=== PATIENT | male | born 1945 | race Caucasian/White ===

== ENCOUNTER 2017-12-18 17:11 | Inpatient (IN) | payer OTHER ==
[~2017-12-18] VITALS: Ht 182.9 cm; Wt 113.5 kg
--- NOTE | ~2017-12-18 | HC ---
[facility] [place] [address] CONSULTATION Name: RIMMA WHITEHEAD Room #: 501-A [facility] IN ..#: [id number] Admission: 12/18/17 Attend Phys: Rimma Guaman MD Discharge: Date of : 43 Report #: [id number] THIS REPORT FOR: //name// CC: Rimma Love DATE OF SERVICE: 12/22/2017 ATTENDING PHYSICIAN: Rimma Guaman MD. MILKING MACHINE TECHNICIAN: Ronny Morris, PhD. 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 He initially showed symptoms of aphasia with right upper extremity weakness and apraxia. The patient has a prior history of hypertension, hyperlipidemia and diabetes mellitus. He reported having 2 prior CVAs without significant residual symptoms prior to this recent and a history of chronic kidney disease and prostate cancer. A complete description of his medical condition and history can be found in his medical record. Neuropsychological consultation was requested to provide assistance in the assessment of cognitive and emotional status and to provide recommendations and services. Prior to this most recent admission, he was living with his son in their home. The patient had moved into the son's home about 3 weeks prior to his stroke. He has 2 children. The patient is a high school graduate. 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 The patient is a of the [place] [employer]. TECHNIQUES UTILIZED: Clinical interview, review of medical records, staff consultation and behavioral observation, mini mental status exam 2 standard version and clock drawing. EXAMINATION FINDINGS: The patient was alert and cooperative with the assessment. He accurately described the reason for his admission. He does not present with a receptive aphasia. However, he does present with a Broca's aphasia noted by halting and effortfull verbal expression and intermittent word substitution. With increased effort and reduced speed of fluency, he is able to effectively communicate wants and needs. The patient is also able to write although intermittent difficulty with dyslexia is noted in written expression. He describes his symptoms to include difficulty with memory and sleep disturbance. Appetite is reported as normal. He does not report subjective [address] [address] CONSULTATION Name: RIMMA WHITEHEAD J Room #: 501-A [facility] IN [facility].#: [id number] Admission: 12/18/17 Attend Phys: Rimma Guaman MD Discharge: Date of : 43 Report #: [id number] depression or feelings of anxiety. He indicated that his [id number] from suicide several years ago and he assisted in the care of his grandchildren at that time. His performance on the MMSE 2 brief version was in the mild range of impairment with a raw score of 13-16, T score 36th percentile rank of 8. He was 3/3 for initial registration, 5/5 for orientation to time, 4/[address] and 1/3 for immediate recall of 3 items after a brief time delay and distraction. His performance on the MMSE 2 standard version was in the low average range with a raw score 25, T score of 42 and percentile rank of 21. He was 5/5 for serial sevens, 2/2 for naming, 1/1 for repetition, 3/3 for auditory comprehension. He could read and follow single command. He had difficulty with writing a sentence and copying a simple geometric design. Clock drawing was within normal limits for a number and hand placement. The patient is presenting with an expressive dysphasia with well-maintained auditory comprehension. Deficits in immediate recall are noted. His mood appears good with a mild degree of anxiety which is intermittent. DIAGNOSTIC IMPRESSION: Mild neurocognitive disorder, due to vascular disease, without behavior disorder. Unspecified anxiety disorder - mild. RECOMMENDATIONS: The patient will benefit from continued utilization of compensatory strategies for areas of decreased cognition. Increased patience during verbal expression will be necessary to improve his self confidence with speech. His family will need to assist in the management of medication upon his initial return home. Additionally, issues concerning driving are noted. Verbal fluency deficits as they interfere with verbal may have an impact on his ability to successfully return to driving. For example, the patient was involved in an accident. He will have trouble describing the event that occurred. Driving with the passengers in the car will be of benefit to help him maintain driving skills. [facility] [address] [place] [address] CONSULTATION Name: RIMMA WHITEHEAD Room #: 501-A [facility] IN ..#: [id number] Admission: 12/18/17 Attend Phys: Rimma Guaman MD Discharge: Date of : 43 Report #: [id number] Thank you very much for allowing me to provide the consultation on this patient. <ELECTRONICALLY SIGNED> By: Ronny Morris, PhD 12/23/17 1459 [id number] 1806 Ronny Morris, PhD /nt
--- NOTE | ~2017-12-18 | PLAN ---
[facility] [place] [address] REHAB UNIT PLAN OF CARE Name: CHARLEYWALT Room #: 501-A [facility] IN ..#: [id number] Admission: 12/18/17 Attend Phys: Rimma Guaman MD Discharge: Date of : 43 Report #: [id number] THIS REPORT FOR: //name// CC: Rimma Montel[facility] DATE OF SERVICE: 12/21/2017 The patient is seen back today in followup. He is in no distress. His last recorded temperature is 98.5, pulse 73, respirations 18, blood pressure 133/63. He continues with the significant expressive greater than receptive aphasia. He has moderate to severe expressive deficits, but only mild comprehension deficits. In physical therapy, he is now modified independent in the room without gait aids. We are working on higher level balance, training, and fall prevention. Dressing upper body is modified independent. Working on strengthening exercises of the right lower extremity and upper extremity. ASSESSMENT: 1. Left middle cerebral artery CVA with multiple acute scattered infarcts. 2. Right upper extremity apraxia with some right lower extremity coordination deficits. 3. Aphasia, expressive greater than receptive. 4. Some dysarthria. 5. Right upper extremity weakness. 6. Hypertension. 7. Hyperlipidemia. 8. Diabetes mellitus. 9. History of depression. 10. Chronic kidney disease. 11. Past history of prostate cancer. 12. Prior stroke without significant residual. PLAN: The overall plan of care is based on the preadmission screen, post-admission physician evaluation and information garnered from therapy assessments. 1. Estimated length of stay is probably 7-14 days pending progress. 2. Medical prognosis is reasonably good. 3. Anticipated interventions includes the interdisciplinary acute inpatient rehabilitation program. 4. Anticipated functional outcomes would be for the patient to be fully independent with gait, transfers mobility, ADLs, and to further improve as far as communication and cognition. 5. Discharge destination would be back to the home setting, where he lives with his son. 6. Expected therapy by discipline includes PT, OT and speech 1 hour per day [address] [address] REHAB UNIT PLAN OF CARE Name: RIMMA WHITEHEAD Room #: 501-A [facility] IN ..#: [id number] Admission: 12/18/17 Attend Phys: Rimma Guaman MD Discharge: Date of : 43 Report #: [id number] each five days a week throughout the duration of the acute inpatient rehabilitation stay. <ELECTRONICALLY SIGNED> By: Rimma Guaman MD 12/26/17 1045 [id number] [id number] Rimma Guaman MD /NAWAF
--- NOTE | ~2017-12-18 | H ---
[facility] [place] [address] HISTORY AND PHYSICAL Name: RIMMA WHITEHEAD Room #: 510-P ADM IN M.R.#: [id number] Admission: 12/18/17 Attend Phys: Rimma Guaman MD Discharge: Date of : 43 Report #: [id number] THIS REPORT FOR: //name// CC: Rimma Love DATE OF SERVICE: 12/19/2017 HISTORY AND PHYSICAL/POST-ADMISSION PHYSICIAN EVALUATION HISTORY OF PRESENT ILLNESS: The patient is a 72-year-old white male who was originally admitted to the [facility] with word finding difficulties, slurred speech, some right-sided weakness. MRI showed acute scattered infarcts in an MCA distribution. He was noted to have aphasia, dysarthria and right upper extremity weakness with apraxia. He is right handed. He has a prior history of hypertension, hyperlipidemia, and diabetes mellitus. He was noted to have a significant functional decline and has now been admitted for acute in-hospital inpatient rehabilitation to the rehab [facility] at [facility]. PAST MEDICAL HISTORY: Includes hypertension, hyperlipidemia, diabetes mellitus, and past history of depression. A prior CVA without significant residual as well as history of chronic kidney disease and prostate cancer. ALLERGIES: SIMVASTATIN. SOCIAL HISTORY: Lives with his son. Premorbidly was independent, ambulating and performing his own ADLs. MEDICATIONS: Please see the current medication list. This includes his vitamins, herbals, and supplements. FAMILY HISTORY: Noncontributory. SOCIAL HISTORY: He lives with his son, was independent with ambulation, 2-3 steps into the home,14 steps to the basement. Did not use any gait aid, premorbidly, was driving. REVIEW OF SYSTEMS: No current complaints of chest pain, shortness of breath or abdominal discomfort. He notes [facility] and [facility] to do the same here at [facility] the rehab [facility]. No focal extremity pain complaints. PHYSICAL EXAMINATION: GENERAL: He is a pleasant 72-year-old overweight white male, in no obvious distress. [facility] [address] [place] [address] HISTORY AND PHYSICAL Name: CHARLEYWALT Room #: 510-P [facility] IN M.R.#: [id number] Admission: 12/18/17 Attend Phys: Rimma Guaman MD Discharge: Date of : 43 Report #: [id number] NEUROLOGIC: Appears to have mild depressed right nasolabial fold. EOMs appeared to be full. I had difficulty testing for visual jacob as he tends to perseverate. He has a definite expressive aphasia with word finding difficulties. Unable to name a pen or watch, but appeared to know how they were used. In his broken speech he was able to ask me to see if he could be by himself in the room. He was able to follow basic commands without difficulty. CHEST: Sounded clear to auscultation. CARDIOVASCULAR: Sounded regular rate and rhythm. ABDOMEN: Obese, bowel sounds positive, nontender. GENITOURINARY AND RECTAL: Deferred. EXTREMITIES: Right upper extremity with some mild coordination deficits, fine finger dexterity. Right lower extremity mild decreased coordination. He has good strength of left upper and left lower extremity without focal weakness. DTRs were trace to 1. ASSESSMENT: A 72-year-old white male with the following problem list: 1. Left middle cerebral artery cerebrovascular accident noted to be multiple acute scattered infarcts within an middle cerebral artery distribution. 2. Right upper extremity apraxia, some mild right lower extremity coordination deficits. 3. Aphasia. Appears to be expressive greater than receptive. 4. Some dysarthria. 5. Right upper extremity weakness. 6. Hypertension. 7. Hyperlipidemia. 8. Diabetes mellitus. 9. History of depression. 10. Chronic kidney disease. 11. Past history of prostate cancer. 12. Prior stroke without significant residual. PLAN: The patient is admitted for acute in-hospital inpatient rehabilitation. From a postadmission physician evaluation, there are no relevant changes since the preadmission screening. Please see the above review of prior and current medical and functional conditions and comorbidities. Please see the patient's previous and current functional status. As far as risk of complications, the patient has multiple medical comorbidities as noted above. Initial plan of care involves the interdisciplinary acute inpatient rehabilitation program with the goal of maximizing the patient's functional independence, so he can hopefully return back to his prior living situation. Measurable functional goals would be for him to become modified independent with transfers, mobility and ADLs that he can hopefully return back to his prior living situation. Prognosis is reasonably good with estimated length of stay probably at least 5-10 days pending progress. Potential barriers would include his multiple medical comorbidities and decreased functional status. [address] [address] HISTORY AND PHYSICAL Name: RIMMA WHITEHEAD Room #: 510-P [facility] IN M.R.#: [id number] Admission: 12/18/17 Attend Phys: Rimma Guaman MD Discharge: Date of : 43 Report #: [id number] We will ask the therapy team to evaluate. If he is ready to be modified independent in his room as he is desiring. He is to be involved in the interdisciplinary acute inpatient rehabilitation program. <ELECTRONICALLY SIGNED> By: Rimma Guaman MD 12/20/17 1124 1118 1136 Rimma Guaman MD /[facility]
[2017-12-18] MEDS ORDERED: ASPIR 8181 MG PO ×2 (19:55→19:56)
[2017-12-18] MEDS ORDERED: LIPITOR80 MG PO (19:56)
[2017-12-18] MEDS ORDERED: TESSALON PERLE100 MG PO (19:57)
[2017-12-18] MEDS ORDERED: PLAVIX 75 MG TA75 M1 PO (19:57)
[2017-12-18] MEDS ORDERED: NOVOLOG100 UNIT/1 SUBQ (19:59)
[2017-12-18 20:00] VITALS: BP 150/78
[2017-12-18] MEDS ORDERED: LEVEMIR SUBQ (20:00)
[2017-12-18] MEDS ORDERED: PRINIVIL20 MG PO (20:01)
[2017-12-18] MEDS ORDERED: ZOLOFT25 MG PO (20:01)
[2017-12-19 06:16] LABS: HEMATOCRIT 39.3 % (42.0-52.0); HEMOGLOBIN 13.1 gm/dL (14.0-18.0); MCH 29.3 pg (26.0-34.0); MCHC 33.3 g/dL (28.0-37.0); MCV 87.8 fL (80.0-100.0); RBC 4.48 mil/uL (4.50-6.00); RDW 14.1 % (10.5-14.5); WBC 7.7 thou/uL (4.0-11.0)
[2017-12-19 06:32] LABS: CREATININE 1.5 mg/dL (0.7-1.3); POTASSIUM 4.4 mmol/L (3.5-5.1)
[2017-12-19 08:00] VITALS: BP 151/63
[2017-12-19 20:00] VITALS: BP 169/62
[2017-12-20 19:40] VITALS: BP 137/58
[2017-12-20 19:46] VITALS: BP 133/63
[2017-12-21 05:41] LABS: BASOPHILS 0.8 % (0.0-2.0); EOSINOPHILS 4.8 % (0.0-3.0); HEMATOCRIT 39.3 % (42.0-52.0); LYMPHOCYTES 21.8 % (24.0-44.0); MCH 28.8 pg (26.0-34.0); MCHC 33.1 g/dL (28.0-37.0); MCV 86.9 fL (80.0-100.0); MONOCYTES 9.8 % (1.0-8.0); PLATELET COUNT 280 thou/uL (150-400); POLYS 62.8 % (36.0-66.0); RBC 4.52 mil/uL (4.50-6.00); RDW 14.2 % (10.5-14.5)
[2017-12-21 05:53] LABS: CALCIUM 8.8 mg/dL (8.5-10.1); CREATININE 1.5 mg/dL (0.7-1.3); MAGNESIUM 2.1 mg/dL (1.8-2.4); POTASSIUM 4.4 mmol/L (3.5-5.1)
[2017-12-21 07:09] VITALS: BP 137/62
[2017-12-21 19:10] VITALS: BP 144/65
[2017-12-22 07:15] VITALS: BP 161/82
[2017-12-22 20:00] VITALS: BP 170/60
[2017-12-23 07:20] VITALS: BP 141/62
[2017-12-23 19:59] VITALS: BP 153/61
[2017-12-24 04:52] LABS: ALBUMIN 3.6 g/dL (3.4-5.0); CALCIUM 9.4 mg/dL (8.5-10.1); CREATININE 1.5 mg/dL (0.7-1.3); POTASSIUM 4.5 mmol/L (3.5-5.1)
[2017-12-24 07:07] VITALS: BP 152/66
[2017-12-24 19:15] VITALS: BP 151/60
[2017-12-25 07:30] VITALS: BP 143/64
[2017-12-25 20:00] VITALS: BP 160/55
[2017-12-26 07:10] VITALS: BP 149/65
[2017-12-26] MEDS ORDERED: PROTONIX40 M1 PO (08:37)
[2017-12-26] MEDS ORDERED: PLAVIX 75 MG TA75 M1 PO ×2 (08:37→08:39)
[2017-12-26] MEDS ORDERED: ZOLOFT25 MG PO ×2 (08:37→08:39)
[2017-12-26] MEDS ORDERED: LIPITOR80 MG PO ×2 (08:37→08:39)
[2017-12-26] MEDS ORDERED: NORVASC10 MG PO (08:37)
[2017-12-26 09:48] VITALS: BP 149/65
[2017-12-26 14:08] VITALS: BP 149/65
[2017-12-27] MEDS ORDERED: PLAVIX 75 MG TA75 M1 PO (11:12)
[2017-12-27] MEDS ORDERED: LIPITOR80 MG PO (11:12)
[2017-12-27] MEDS ORDERED: NORVASC10 MG PO (11:12)
[2017-12-27] MEDS ORDERED: ZOLOFT25 MG PO (11:12)
[2017-12-27] MEDS ORDERED: PROTONIX40 M1 PO (11:26)
== END 2017-12-26 18:10 | disposition home health service (06) | DRG 65 ==
PROVIDERS: Hospitalist; Nurse Practitioner; Physical Medicine & Rehabilitation
DX: I63.9 Cerebral infarction, unspecified (principal); N17.9 Acute kidney failure, unspecified; R47.01 Aphasia; R47.81 Slurred speech; R53.1 Weakness; R47.1 Dysarthria and anarthria; R48.2 Apraxia; E78.5 Hyperlipidemia, unspecified; F32.9 Major depressive disorder, single episode, unspecified; N18.9 Chronic kidney disease, unspecified; E11.22 Type 2 diabetes mellitus with diabetic chronic kidney disease; I12.9 Hypertensive chronic kidney disease with stage 1 through stage 4 chronic kidney disease, or unspecified chronic kidney disease; Z85.46 Personal history of malignant neoplasm of prostate; Z88.8 Allergy status to other drugs, medicaments and biological substances; Z79.82 Long term (current) use of aspirin; Z79.4 Long term (current) use of insulin; Z79.899 Other long term (current) drug therapy; Z28.21 Immunization not carried out because of patient refusal
CPT/HCPCS: 10112